=== PATIENT | male | born 1950 | race Caucasian/White ===

== ENCOUNTER → 2022-08-14 07:42 | Outpatient (BNVA) | payer MEDICARE, SELFPAY | PROVIDERS: PCP Family Medicine; Visit Provider Nurse Practitioner Family | DX: R25.1 Tremor, unspecified (principal); F45.8 Other somatoform disorders; H53.8 Other visual disturbances; M48.02 Spinal stenosis, cervical region; R29.898 Other symptoms and signs involving the musculoskeletal system | CPT/HCPCS: 99202 ==

== ENCOUNTER 2022-09-10 09:16 | Outpatient (REF) | payer MEDICARE, SELFPAY ==
--- NOTE | ~2022-09-10 | MR_ITS ---
EXAMINATION: MR BRAIN WITHOUT CONTRAST CLINICAL INFORMATION: 71-year-old with tremors in hands and arms. COMPARISON: None TECHNIQUE: Multiplanar multisequence MR imaging of the brain was done without IV contrast. FINDINGS: Brain Volume: [id number] generalized diffuse parenchymal volume loss within the limitations of qualitative assessment. Structural: No malformations. Brain and Meninges: DWI sequence demonstrates no restricted diffusion to suggest acute or subacute cerebral ischemia. There are scattered punctate and patchy zones of FLAIR/T2 signal hyperintensity in the subcortical and deeper periventricular white matter of both cerebral hemispheres, which are nonspecific findings but likely reflect chronic ischemic microangiopathy in a patient of this age. Gradient refocused imaging demonstrates no abnormal magnetic susceptibility artifact to suggest hemorrhage, hemosiderin staining or abnormal mineralization. No extra-axial fluid collections, significant space-occupying process or mass effect is identified. [place]-white matter differentiation is well maintained. Ventricles and Subarachnoid Spaces: The ventricular system and subarachnoid spaces are within normal range. There is no hydrocephalus. Orbital Structures: Bilateral lens extractions are noted. Otherwise, the visualized orbital structures are grossly unremarkable within the limitations of the study. Vascular: Signal voids are noted in the visualized major intracranial vessels. Osseous Structures, Sinuses/Mastoids, Extracranial Soft Tissues: Unremarkable. MR/MR head/brain wo con IMPRESSION: 1. 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 No acute intracranial process identified. 2. Hmbf-bp-[id number] generalized diffuse brain parenchymal volume loss without hydrocephalus.
== END 2022-09-10 09:17 | disposition home or self-care (01) ==
LOC: HO.MRI 09:16
PROVIDERS: PCP Family Medicine; Visit Provider Nurse Practitioner Family
DX: R25.1 Tremor, unspecified (principal); H53.8 Other visual disturbances; R29.898 Other symptoms and signs involving the musculoskeletal system
CPT/HCPCS: 70551

== ENCOUNTER → 2022-12-11 10:42 | Outpatient (BNVA) | payer MEDICARE, SELFPAY | PROVIDERS: PCP Family Medicine; Visit Provider Nurse Practitioner Family | DX: R25.1 Tremor, unspecified (principal); M48.02 Spinal stenosis, cervical region | CPT/HCPCS: 99212 ==

== ENCOUNTER 2023-05-21 09:54 | Outpatient (AMB) | payer MEDICARE, SELFPAY ==
[2023-05-21 10:12] VITALS: BP 120/72; PULSE 60; O2SAT 95; BMI 24.7
--- NOTE | 2023-05-21 10:12 | MHC.OFFVIS ---
Intake Vital Signs 05/21/23 10:12 Height 5 ft 10 in Weight 172 lb BMI 24.7 BP 120/72 Blood Pressure Location Lt brachial Position Sitting Pulse 60 Pulse Source Pulse Oximeter Pulse Oximetry (%) 95 Oxygen Delivery Method Room Air Intake Visit Reasons: 4m follow up tremers - Confirmed Intake Note: Pt presents as a 4 month f/u for tremors. Pt states I don't think the meds are working as well as they used to be. Human Resources Support Specialist Required: No Allergies No Known Allergies Allergy (Verified 05/21/23 10:15) Medication List - Last Reconciled 05/21/23 by OANH Rodriguez multivitamin 1 tab PO DAILY propranolol 10 mg PO BID PRN 30 days sildenafil mg PO HPI HPI Comments History of Present Illness Details 72-yr-old male presents for f/u visit. Pt's current tremor medication regimen: Propranolol 10 mg qd-bid Pt's primary concerns are: Feels the Propranolol is not as effective. Noticing more tremor when say holding his coffeee cup in the morning. He is wondering about interaction w/ Sildenafil. He would like to review the previous brain MRI. ADL's: Ind Orthostatic lightheadedness: None Tremor: as above Falls: None Memory: Intact Sleep: Denies parasomnias. Does snore. Wakes up refreshed. Exercise: Not exercising as much- states life has just gotten in the way [facility] Medical History Achilles tendon tear Cervical radiculopathy Cervical spinal stenosis Hypogonadism Neural foraminal stenosis of cervical spine Surgical History History of back surgery Family History Mother No problems noted. Father No problems noted. Social History (Updated 05/21/23 @ 10:16 by Gladys Pearce CMA) Alcohol intake: current Alcohol intake frequency: holidays/special occasions only Patient Tobacco Use Status: Never used Tobacco Review of Systems Const All systems reviewed & are unremarkable except as noted in HPI and below Physical Exam Vital Signs: Last Vital Signs Pulse 60 05/21/23 10:12 BP 120/72 05/21/23 10:12 Pulse Ox 95 05/21/23 10:12 Oxygen Delivery Method Room Air 05/21/23 10:12 BMI result Body Mass Index 24.7 Const General: cooperative and no acute distress Resp Effort & Inspection: normal respiratory effort and able to speak in complete sentences Neuro Other: Expression: Intact Voice: Strong Tremor: BUE R > L postural tremor Tone: Very mild RUE tone. Dyskinesia: None FFM: Intact Foot taps: intact Gait: Slight drop of right shoulder, otherwise, good stride, steady gait. General: patient oriented x3 and CN's II-XI intact bilaterally Cognition (Neuro): normal cognition Assessment & Plan Assessment & Plan (1) Tremor: Comment: likely ET, possibly cervicogenic, low-suspicion for dopaminergic process at this time. Code(s): R25.1 - Tremor, unspecified (2) White matter abnormality on MRI of brain: Comment: mild age-related white matter changes and mild-mod global cerebral volume loss Code(s): R90.82 - White matter disease, unspecified Plan Reviewed brain MRI report and [id number] white matter changes and mild-mod volume loss. Again no findings to explain pt's BUE tremor. Increase Propranolol to 20mg qam and 10mg qpm (hold if he plans to take sildenafil) Increase regular physical activity. Future considerations- Kaley-Trio. f/u in 6 months or sooner prn Medications: Changed From propranolol 10 mg PO BID 30 days PRN 60 tabs 6RF tremor To propranolol 20mg qam and 10mg qpm orally 2 times a day; 30 days 60 tabs 6RF tremor Coding Level of Care Code Est Pt Level 4 (77123) Diagnoses Tremor R25.1 White matter abnormality on MRI of brain R90.82
== END 2023-05-21 11:01 | disposition home or self-care (01) ==
PROVIDERS: Visit Provider Nurse Practitioner Family
DX: R25.1 Tremor, unspecified (principal); R90.82 White matter disease, unspecified
CPT/HCPCS: 99214

== ENCOUNTER → 2023-05-21 09:54 | Outpatient (BNVA) | payer MEDICARE, SELFPAY | PROVIDERS: Visit Provider Nurse Practitioner Family | DX: R25.1 Tremor, unspecified (principal); R90.82 White matter disease, unspecified | CPT/HCPCS: 99212 ==

== ENCOUNTER 2024-02-13 08:47 | Outpatient (AMB) | payer MEDICARE, SELFPAY ==
--- NOTE | 2024-02-13 08:48 | MHC.OFFVIS ---
Vital Signs 02/13/24 08:55 Height 5 ft 10 in Weight 168 lb 6 oz BMI 24.2 BP 120/70 Blood Pressure Location Lt brachial Position Sitting Pulse 53 Pulse Source Pulse Oximeter Temp 97 F Intake Visit Reasons: 6m follow up tremors-LVM Intake Note: Patient presents for 6 months f/u. Propranolol is not lasting all day. Allergies No Known Allergies Allergy (Verified 02/13/24 08:53) Medication List - Last Reconciled 02/13/24 by OANH Rodriguez multivitamin 1 tab PO DAILY propranolol 10 - 20 mg (1 - 2 x 10 mg) PO ONCE 30 days propranolol ER 60 mg PO DAILY 30 days sildenafil mg PO HPI Comments Details: 73-yr-old female presents for f/u visit. Pt denies any significant interval medical history changes. Since the last visit, we adjusted pt's Propranolol to 60mg ER qam. Pt finds this helps in the am but wears off by the afternoon, around 4pm. He is noticing more tremor in the left hand, tremor has always been more prominent on the left. Pt states it is an action tremor, when holding a cup. He may notice thumbs tremoring when he holds his hands together (states he just recently started doing this when sitting), may notice left thumb twitch when driving (using RUE to steer). Denies orthostatic lightheadedness. Denies hyposmia. Denies parasomnias. No falls. Cognition stable. Continues to exercise regularly- goes to the gym- full body strength training. [facility] Medical History Achilles tendon tear Cervical radiculopathy Cervical spinal stenosis Hypogonadism Neural foraminal stenosis of cervical spine Surgical History History of back surgery Family History Mother No problems noted. Father No problems noted. Social History (Updated 02/13/24 @ 08:55 by Bailee Rodriguez CMA) Household Members: Spouse Housing: Apartment Alcohol intake: current Alcohol intake frequency: holidays/special occasions only Patient Tobacco Use Status: Never used Tobacco Review of Systems Const All systems reviewed & are unremarkable except as noted in HPI and below Physical Exam Vital Signs: Last Vital Signs Temp 97 F 02/13/24 08:55 Pulse 53 02/13/24 08:55 BP 120/70 02/13/24 08:55 BMI result Body Mass Index 24.2 Const General: cooperative and no acute distress Resp Effort & Inspection: normal respiratory effort and able to speak in complete sentences Neuro Other: General: A&O x's 3 Expression: Intact Voice: Intact Tremor: Intermittent mild left 1st finger tremor. BUE, L > R, postural tremor. Tone: Mild LUE tone Dyskinesia: None FFM: Intact Foot taps: Slower on left- has h/o achile's injury. Gait: Stands easily, slight decreased left arm swing. Psych: Pleasant affect. Assessment & Plan Assessment & Plan (1) Tremor: Comment: likely ET, possibly cervicogenic, low-suspicion for dopaminergic process at this time. Code(s): R25.1 - Tremor, unspecified Category: Medical (2) White matter abnormality on MRI of brain: Comment: mild age-related white matter changes and mild-mod global cerebral volume loss Code(s): R90.82 - White matter disease, unspecified Category: Medical Plan Continue Propranolol ER 60mg qam, may take Propranolol IR 10-20mg q afternoon. BP normotensive Monitor for lightheadedness. Continue increased physical and social activity. Future considerations- Primidone, dopaminergic tx. Medications: New propranolol q afternoon 10 - 20 mg (1 - 2 x 10 mg) PO ONCE 60 tabs 3RF tremor 30 days Coding Level of Care Code Est Pt Level 4 (79644) Diagnoses Tremor R25.1 White matter abnormality on MRI of brain R90.82
[2024-02-13 08:55] VITALS: BP 120/70; PULSE 53; TEMP 36.1; BMI 24.2
== END 2024-02-13 09:16 | disposition home or self-care (01) ==
PROVIDERS: PCP Family Medicine; Visit Provider Nurse Practitioner Family
DX: R25.1 Tremor, unspecified (principal); R90.82 White matter disease, unspecified
CPT/HCPCS: 99214

== ENCOUNTER → 2024-02-13 08:47 | Outpatient (BNVA) | payer MEDICARE, SELFPAY | PROVIDERS: PCP Family Medicine; Visit Provider Nurse Practitioner Family | DX: R25.1 Tremor, unspecified (principal); R90.82 White matter disease, unspecified; Z79.899 Other long term (current) drug therapy | CPT/HCPCS: 99212 ==

== ENCOUNTER 2025-01-04 08:26 | Outpatient (AMB) | payer MEDICARE, SELFPAY ==
[2025-01-04 08:32] VITALS: BP 130/70; PULSE 64; O2SAT 95; BMI 24.8
--- NOTE | 2025-01-04 08:32 | A.OFFVIS_ITS ---
Vital Signs 01/04/25 08:32 Height 5 ft 10 in Weight 173 lb BMI 24.8 BP 130/70 Blood Pressure Location Rt brachial Position Sitting Pulse 64 Pulse Source Pulse Oximeter Pulse Oximetry (%) 95 Oxygen Delivery Method Room Air Intake Visit Reasons: 6 mon follow up Intake Note: Patient presents follow up tremor medication Entry Level Administrative Assistant Required: No Accompanied by: Self / Same As Patient Allergies No Known Allergies Allergy (Verified 02/13/24 08:53) Medication List - Last Reconciled 01/04/25 by OANH Rodriguez gabapentin 300 mg PO DAILY multivitamin 1 tab PO DAILY propranolol 10 - 20 mg (1 - 2 x 10 mg) PO ONCE 30 days propranolol ER 60 mg PO DAILY 30 days sildenafil mg PO HPI Comments Details: 73-yr-old female presents for f/u visit of tremor. Pt denies any significant interval medical history changes. Since last visit, patient has started on gabapentin, however he continues to have progressive tremor. He is curious about trying focused ultrasound instead of medication to manage the tremor better. The tremor is left-handed, but now also in the right hand. He continues to have tremor when holding a coffee cup. But he is also noticing tremor now at rest especially in the left thumb, and even his left hand when walking. Has had a hoarse voice x's past 1.5 years. Denies dysphagia. Denies orthostatic lightheadedness. Denies hyposmia. Denies constipation. Denies urinary changes. Sleeping longer. Denies parasomnias. Denies stiffness. No falls or gait changes. Cognition stable- but have some STM lapses. Continues to work as an advisor. Continues to exercise regularly- goes to the gym- full body strength training. [facility] Medical History Achilles tendon tear Cervical radiculopathy Cervical spinal stenosis Hypogonadism Neural foraminal stenosis of cervical spine Surgical History History of back surgery Family History Mother No problems noted. Father No problems noted. Social History Household Members: Spouse Housing: Apartment Alcohol intake: current Alcohol intake frequency: holidays/special occasions only Patient Tobacco Use Status: Never used Tobacco Physical Exam Vital Signs: Last Vital Signs Pulse 64 01/04/25 08:32 BP 130/70 01/04/25 08:32 Pulse Ox 95 01/04/25 08:32 Oxygen Delivery Method Room Air 01/04/25 08:32 BMI result Body Mass Index 24.8 Const General: cooperative and no acute distress Resp Effort & Inspection: normal respiratory effort and able to speak in complete sentences Neuro Other: General: A&O x's 3 Expression: Intact Voice: Intact Tremor: Intermittent mild left 1st finger tremor. BUE, L > R, postural tremor. Tone: Mild BUE, L > R, tone Dyskinesia: None FFM: Slightly decreased on right. Foot taps: Slower on left- has h/o achile's injury. Gait: Stands easily, slight decreased left arm swing with LUE tremor, good stride, good turn. Psych: Pleasant affect. Assessment & Plan Assessment & Plan (1) Tremor: Comment: likely ET, possibly cervicogenic, Code(s): R25.1 - Tremor, unspecified Category: Medical (2) White matter abnormality on MRI of brain: Comment: mild age-related white matter changes and mild-mod global cerebral volume loss Code(s): R90.82 - White matter disease, unspecified Category: Medical Plan Discussion Notes I discussed with the patient the progression of his tremor and the potential need to investigate further for Parkinson's Disease. I explained the differences between essential tremor and Parkinsonism, focusing on the presence of a rest tremor and changes in facial expression. We discussed the utility of repeating an MRI to rule out silent strokes and the potential for a AMISHA scan to assess dopamine transporter function, noting its limitations and how it may guide further evaluation. I informed him that a positive AMISHA scan would indicate Parkinsonian syndrome, hence supporting further clinical decision-making. We explored treatment options for tremor management focusing on the initiation of medications that involve dopamine, discussing potential side effects like nausea and lightheadedness. Alternative surgical approaches, such as focused ultrasound and deep brain stimulation, were reviewed, emphasizing reversibility and potential cognitive risks. I encouraged continued exercise and social engagement as positive interventions. The patient consented to proceed with planned diagnostics. Plan 1.Arrange MRI and AMISHA scan. MRI to rule out past stroke. DaTSCAN to assess for central dopaminergic metabolic dysfunction. Consider trial of dopamine medication, such as CD LD or amantadine, post-results. Discuss deep brain stimulation if Parkinsonism confirmed. 2. Gabapentin treatment continued for tremor. Symptoms worsened. Evaluate with imaging to assess for Parkinson's features. Additional pharmacological or procedural interventions may be needed. Patient Instructions - Continue taking gabapentin as prescribed. - Schedule the MRI and AMISHA scan as soon as possible. - Maintain regular exercise routine. - Avoid searching online for medical advice until test results are reviewed. - Report any new symptoms or changes in current symptoms promptly. - Stay active and engage socially to promote general health and quality of life. Patient was informed and verbally consented to the use of an ambient scribe for clinic note documentation during this visit. Will follow-up upon review of above and patient to follow-up in clinic in 3-4 months or sooner prn. Orders: Orders DaTscan Today R25.1 - Tremor, unspecified, R29.898 - Other symptoms and signs involving the musculoskeletal system, R90.82 - White matter disease, unspecified MR cervical spine wo/w con Today R25.1 - Tremor, unspecified, R29.898 - Other symptoms and signs involving the musculoskeletal system, R90.82 - White matter disease, unspecified Coding Level of Care Code Est Pt Level 4 (28935) Diagnoses Tremor R25.1 White matter abnormality on MRI of brain R90.82
--- OUTSIDE RECORDS SUMMARY | 2025-01-04 08:59 | XMS_ITS | Clinical Summary ---
Author Organization [facility] Address [address] [place] [address] Care Team Providers Care Central Office Repairer Supervisor Name Role Phone Unavailable Primary Care Provider Unavailabl e Medical History Medical History Date Comments Lumbago 02/18/2012 DX:Lumbago Lumbosacral spondylosis with out myelopathy DX:Lumbosacral spondylosis w ithout myelopathy Family History Medical History Relation Name Comments Autoimmune disease Neg Hx Breast cancer Neg Hx Colon cancer Neg Hx Coronary artery disease Neg Hx Diabetes Neg Hx Heart attack Neg Hx Heart failure Neg Hx Hyperlipidemia Neg Hx Hypertension Neg Hx Mental illness Neg Hx Prostate cancer Neg Hx Sleep apnea Neg Hx Thyroid disease Neg Hx Relation Name Status Comments Father Mother Social History Tobacco Use Types Packs/Day Years Used Date Smoking Tobacco: Never Smokeless Tobacco: Never Alcohol Use Standard Drinks/Week Comments Yes 0 (1 standard drink = 0.6 oz pur e alcohol) Sex and Gender Information Value Date Recorded Sex Assigned at Not on file Legal Sex Male 11:11 PM EST Gender Identity Not on file Sexual Orientation Not on file Obstetrics History Last Filed Vital Signs Vital Sign Reading Time Taken Comments Blood Pressure 132/62 02/13/2022 9:49 AM EDT Pulse 54 02/13/2022 9:49 AM EDT Temperature - - Respiratory Rate - - Oxygen Saturation - - Inhaled Oxygen Concentration - - Weight 81.6 kg (180 lb) 01/15/2022 8:51 AM EDT Height 177.8 cm (5' 10 ) 01/15/2022 8:51 AM EDT Body Mass Index 25.83 01/15/2022 8:51 AM EDT Plan of Treatment Health Maintenance Due Date Last Done Comments DTaP,Tdap,and Td Vaccines (1 - Tdap) 1968 Pneumococcal Vaccine: 50+ Ye ars (1 of 1 - PCV) 1999 Zoster Vaccines (1 of 2) 1999 Abdominal Aortic Aneurysm (A AA) Screen 09/15/2022 Cholesterol Screening (Lipid Panel) 09/15/2022 Colorectal Cancer Screening: Colonoscopy 09/15/2022 Depression Screening 09/15/2022 Falls Risk Assessment 09/15/2022 Hepatitis C Screening 09/15/2022 Social Influencers of Health Screening 09/15/2022 COVID-19 Vaccine ( - 2023-2 5 season) 2024 Influenza Vaccine (#1) 2024 RSV Immunization Patients 60 + Years Old (1 - 1-dose 75+ series) 2024 HIB Vaccines Aged Out No longer eligi ble based on patient's age to complete this topic HPV Vaccines Aged Out No longer eligi ble based on patient's age to complete this topic Hepatitis A Vaccines Aged Out No long er eligible based on patient's age to complete this topic Hepatitis B Vaccines Aged Out No long er eligible based on patient's age to complete this topic IPV Vaccines Aged Out No longer eligi ble based on patient's age to complete this topic MMR Vaccines Aged Out No longer eligi ble based on patient's age to complete this topic Meningococcal ACWY Vaccine Aged Out N o longer eligible based on patient's age to complete this topic Meningococcal B Vacine Aged Out No lo nger eligible based on patient's age to complete this topic RSV Immunization Patients Un padmini 20 months Aged Out No longer eligible b ased on patient's age to complete this topic Varicella Vaccines Aged Out No longer eligible based on patient's age to complete this topic
== END 2025-01-04 09:46 | disposition home or self-care (01) ==
LOC: HO.HSMS 08:26
PROVIDERS: PCP Family Medicine; Visit Provider Nurse Practitioner Family
DX: R25.1 Tremor, unspecified (principal); R90.82 White matter disease, unspecified
CPT/HCPCS: 99214

== ENCOUNTER → 2025-01-04 08:26 | Outpatient (BNVA) | payer MEDICARE, SELFPAY | PROVIDERS: PCP Family Medicine; Visit Provider Nurse Practitioner Family | DX: R25.1 Tremor, unspecified (principal); R90.82 White matter disease, unspecified | CPT/HCPCS: 99212 ==

== ENCOUNTER 2025-01-13 10:49 | Outpatient (REF) | payer MEDICARE, SELFPAY ==
--- NOTE | ~2025-01-13 | MR_ITS ---
EXAMINATION: MR CERVICAL SPINE WITHOUT AND WITH CONTRAST CLINICAL INFORMATION: White matter disease, unspecified. COMPARISON: None available. TECHNIQUE: MRI of the cervical spine was obtained using routine sequences with and without contrast. Intravenous contrast: (Gadolinium based (Gadavist) 8 mL. No reported immediate complications FINDINGS: The cervical spinal cord signal is normal. There is no enhancing lesion within the cervical spinal cord. No abnormal enhancement within the leptomeningeal compartment or the prevertebral compartment nor the central spinal canal. Craniocervical junction is intact. Bone marrow inhomogeneity throughout the axial skeleton. L2 level marginal osteophyte formation and disc desiccation more conspicuous at C6-7 and to a lesser extent C5-6, C7-T1, C4-5 and T1 T3 levels. There is a buckling deformity of the dorsal aspect of the thecal sac secondary to hypertrophy of the ligamentum flavum at C2-3, C3-4, C5-6 levels. C2-3: No disc herniation. No neuroforamina stenosis. C3-4: Disc osteophyte complex formation resulting in ventral deformity of thecal sac. No neuroforamina stenosis. No cord compression. C4-5: Disc osteophyte complex formation resulting in ventral deformity of the thecal sac. No cord compression. Bilateral neuroforamina stenosis on a degenerative basis. C5-6: Disc osteophyte complex formation resulting in ventral deformity of the thecal sac. No cord compression. Bilateral neuroforamina stenosis on a degenerative basis. Small right perineural cyst. C6-7: Disc osteophyte complex formation resulting in ventral deformity of the thecal sac. No cord compression. Bilateral neuroforamina stenosis on a degenerative basis. Small perineural cysts, bilaterally. C7-T1: No disc herniation. No neuroforamina stenosis. No prevertebral compartment hematoma, mass or fluid collection. Flow-void signal within the main vessels is normal. Left vertebral artery is slightly dominant. MR/MR cervical spine wo/w con IMPRESSION: No abnormal enhancing lesion and or mass, cervical spine. Multilevel cervical spondylosis C3 C7 more conspicuous at C4-5 C5-6 and to a lesser extent C4-5 resulting in central spinal canal and bilateral neuroforamina stenosis. No cord edema and or myelopathy or cord lesion. Electronically signed by: Christiano Freitas MD 01/14/2025 09:29 AM EDT RP
--- OUTSIDE RECORDS SUMMARY | 2025-01-13 12:04 | XMS_ITS | Clinical Summary ---
Author Organization [address] [place] [address] [place] [id number] Phone Care Team Providers Care Manager Customer Name Role Phone Abraham Young DO Primary Care Provider [phone] Medical History Medical History Date Comments Lumbago [...] 01/15/2022 8:51 AM EDT Plan of Treatment Upcoming Encounters Date Type Department Care Team ([facility] st Contact Info) Description 01/17/2025 8:30 AM EDT Consult Plastic & Reconstructive Surgery - [place] [address] [place] [id number] Cj Fernandez, [address] [place] [address] Health Maintenance Due Date Last Done Comments [...] Vaccine ( - 2023-2 5 season) 2024 RSV Immunization Adult Patie nts (1 - 1-dose 75+ series) 2024 Influenza Vaccine (Season Ended) 2025 HIB Vaccines Aged Out No longer eligi [...] on patient's age to complete this topic Insurance [facility] [address] [place] [address] Care Teams Manager Customer Relationship Specialty Start Date End Date Abraham Young DO [address], [place] PCP - General Family Medicine 01/10/25
[2025-01-13] MEDS: gadobutroL 10 ML VIAL IVPUSH (12:41)
== END 2025-01-13 10:50 | disposition home or self-care (01) ==
LOC: HO.MRI 10:49
PROVIDERS: PCP Family Medicine; Visit Provider Nurse Practitioner Family
DX: R90.82 White matter disease, unspecified (principal); R29.898 Other symptoms and signs involving the musculoskeletal system; R25.1 Tremor, unspecified
CPT/HCPCS: 72156; A9585

== ENCOUNTER → 2025-01-13 11:23 | Outpatient (BNV) | payer MEDICARE, SELFPAY | PROVIDERS: PCP Family Medicine; Visit Provider Radiology Diagnostic Radiology | DX: M47.812 Spondylosis without myelopathy or radiculopathy, cervical region (principal) | CPT/HCPCS: 72156 ==

== ENCOUNTER 2025-04-06 15:48 | Outpatient (AMB) | payer MEDICARE, SELFPAY ==
[2025-04-06 16:08] VITALS: BP 140/70; PULSE 62; O2SAT 97; BMI 24.2
--- NOTE | 2025-04-06 16:08 | A.OFFVIS_ITS ---
Vital Signs 04/06/25 16:08 Height 5 ft 10 in Weight 169 lb BMI 24.2 BP 140/70 H Blood Pressure Location Rt brachial Position Sitting Pulse 62 Pulse Source Pulse Oximeter Pulse Oximetry (%) 97 Oxygen Delivery Method Room Air Intake Visit Reasons: 4 mo follow up Glucose And Syrup Weigher Required: No Accompanied by: Self / Same As Patient Allergies No Known Allergies Allergy (Verified 02/13/24 08:53) Medication List - Last Reconciled 04/06/25 by OANH Rodriguez carbidopa-levodopa 25-100 mg 1 tab PO BID 30 days multivitamin 1 tab PO DAILY propranolol 10 - 20 mg (1 - 2 x 10 mg) PO ONCE 30 days propranolol ER 60 mg PO DAILY 30 days sildenafil mg PO HPI Comments Details: History of Present Illness The patient is a 74-year-old male presenting with Parkinson's Disease, primarily marked by tremor. Since the last visit, his AMISHA scan has shown diminished bilateral putamen activity, with a more pronounced decrease on the right side, coupled with asymmetric activity in the anterior caudate nuclei, consistent with diagnoses Parkinson's. and the C-spine MRI, showed multilevel cervical spondylosis, spinal canal stenosis and bilateral neuroforaminal stenosis without cord edema or myelopathy. On review of the studies, patient was advised to trial carbidopa levodopa and Discontinue propranolol. The patient reports he has started using carbidopa/levodopa twice daily, which has helps some without notable side effects such as orthostatic lightheadedness, gastrointestinal discomfort, or dyskinesia. However, he experiences a significant tremor that intensifies when holding objects, often necessitating the use of both hands for greater stability. His cognitive abilities remain largely stable, although he occasionally forgets movie titles, attributing this to aging rather than a worsening cognitive decline. Over recent months, the patient has not partaken in regular exercise, partly due to a busy personal schedule. Despite this, he maintains independence in activities of daily living and denies any mood or significant sleep disturbances. Pt's current PD medication regimen: Carbidopa/Levodopa twice a day at 8:30 and 4:30 Activities of daily living (ADL's): Independent Instrumental activities of daily living (IADL's): Independent Swallowing difficulty: Denies Cough: Denies Drooling: Denies Orthostatic lightheadedness: Denies Constipation: Denies Urinary symptoms: Denies Tremor: Present, worse when holding objects Dyskinesia: None Stiffness: Denies Musculoskeletal symptoms: Denies Gait difficulties or changes: Denies Freezing episodes of gait: Denies Falls: Denies Mood difficulties or changes: Denies Hallucinations: Denies Memory difficulties or changes: Occasionally forgets movie titles Sleep difficulties: Denies Exercise routine: Not in the last month and a half Socialization and cognitive activities: None Results - 01/19/2025, AMISHA Scan showing diminished activity in the putamen bilaterally, more prominent on the right, with asymmetric activity in the anterior caudate nuclei. - 01/13/2025,MR/MR cervical spine wo/w con IMPRESSION: No abnormal enhancing lesion and or mass, cervical spine. Multilevel cervical spondylosis C3 C7 more conspicuous at C4-5 C5-6 and to a lesser extent C4-5 resulting in central spinal canal and bilateral neuroforamina stenosis. No cord edema and or myelopathy or cord lesion. [facility], [facility] Medical History Achilles tendon tear Cervical radiculopathy Cervical spinal stenosis Hypogonadism Neural foraminal stenosis of cervical spine Surgical History History of back surgery Family History Mother No problems noted. Father No problems noted. Social History Household Members: Spouse Housing: Apartment Alcohol intake: current Alcohol intake frequency: holidays/special occasions only Patient Tobacco Use Status: Never used Tobacco Physical Exam Vital Signs: Last Vital Signs Pulse 62 04/06/25 16:08 BP 140/70 H 04/06/25 16:08 Pulse Ox 97 04/06/25 16:08 Oxygen Delivery Method Room Air 04/06/25 16:08 BMI result Body Mass Index 24.2 Const General: cooperative and no acute distress Resp Effort & Inspection: normal respiratory effort and able to speak in complete sentences Neuro Other: General: A&O x's 3 Expression: Intact Voice: Intact Tremor: Intermittent LUE tremor. BUE, L > R, postural tremor. Tone: LUE mild rigidity in wrist and elbow Dyskinesia: None FFM: Improved Foot taps: Slower on left- has h/o Achilles injury. Gait: Stands easily, slight decreased left arm swing good stride, good turn. Psych: Pleasant affect. Assessment & Plan Assessment & Plan (1) Parkinson's disease without dyskinesia: Comment: January 2025, positive DaTSCAN. Tremor predominant Code(s): G20.A1 - Parkinson's disease without dyskinesia, without mention of fluctuations Category: Medical Qualifiers: Fluctuating manifestations: without fluctuating manifestations Qualified Code(s): G20.A1 - Parkinson's disease without dyskinesia, without mention of fluctuations (2) Tremor: Comment: Rest and action tremor, asymmetry. Likely multifactorial, including cervical spinal stenosis and Parkinson's. Code(s): R25.1 - Tremor, unspecified Category: Medical Plan Discussion Notes During the consultation, I discussed with the patient the ongoing management of Parkinson's Disease, primarily through the current regimen of carbidopa/levodopa. We considered the option of increasing the dosage to three times daily if his symptoms necessitate further control. I reviewed the AMISHA scan findings with the patient and discussed the diagnosis, treatment, and natural trajectory Parkinson's disease.. In my recommendations, I emphasized the importance of incorporating regular physical activity as adjunctive therapy aids. Patient was informed and verbally consented to the use of an ambient scribe for clinic note documentation during this visit. Plan and Patient Instructions * Increase carbidopa levodopa IR 25-100 mg from 1 tab twice a day to 1 tab 3 times a day. * may take carbidopa levodopa with or without cracker * take carbidopa levodopa at least 30 minutes before a full meal or protein intake. * Information shared on Parkinson's patient education resources, such as then every victory counts ? PD patient education book. * Increase regular physical activity * Maintain optimal fluid intake, with a goal of at least 64-80 oz per day * Monitor for changes in symptoms and inform us of any new developments. * We will request baseline neuropsych evaluation- as patient has previously express interest in sulcus ultrasound of the brain stimulation therapy * Future considerations: trial of amantadine- tremor * Complete MMSE at follow-up Pt to follow-up in 3-4 months or sooner prn. Orders: Referrals Neuropsychiatry Referral G20.A1 - Parkinson's disease without dyskinesia, without mention of fluctuations, R25.1 - Tremor, unspecified Medications: Changed From carbidopa-levodopa 25-100 mg take w/ a cracker 30 minutes before breakfast and dinner, 1 tab PO BID 30 days 60 tabs 3RF To carbidopa-levodopa 25-100 mg take w/ a cracker 30 minutes before breakfast, lunch, and dinner. 1 tab PO TID 270 tabs 1RF 90 days Discontinued propranolol ER Discontinued Reason: Doctor's Order 60 mg PO DAILY 30 days 30 caps 6RF Coding Level of Care Code Est Pt Level 4 (17732) Complex EM visit Add On G2211 Diagnoses Parkinson's disease without dyskinesia or fluctuating manifestations G20.A1 Fluctuating manifestations: without fluctuating manifestations Tremor R25.1
--- OUTSIDE RECORDS SUMMARY | 2025-04-06 18:32 | XMS_ITS | Clinical Summary ---
Author Organization [address] [place] [address] Address [address] [place] [address] Phone Care Team Providers Care Energy Scheduler Name Role Phone Abraham Young DO Primary Care Provider [phone] Allergies No known active allergies Medications gabapentin (NEURONTIN) 100 mg capsule TAKE 2 CAPSULES (200MG) ORALLY 3 TIMES A DAY FOR 30 DAYS 5 Active carbidopa-levod opa (SINEMET) 25-100 mg per tablet TAKE 1 TABLET BY MOUTH TWICE A DAY TAKE WITH A CRACKER 30 MINUTES BEFORE BREAKFAST AND DINNER, 5 Active primidone (MYSOLINE) 50 mg tablet TAKE 1 TABLET BY MOUTH AT BEDTIME FOR 2 WEEKS THEN 1 TABLET TWICE DAILY 4 Active propranoloL (INDERAL) 10 mg tablet 2 tablets (20 mg total). 3 Active sildenafiL (VIAGRA) 100 mg tablet TAKE 1 TABLET BY MOUTH 1 HOUR BEFORE SEXUAL ACTIVITY 4 Active Active Problems Problem Noted Date Diagnosed Date Basal cell carcinoma (BCC) of right christian regio n 01/17/2025 Abnormal EKG 11/01/2020 Overview (03/10/2025): Last Assessment & Plan: The patient was not to have a right bundle branch block on his electrocardiogram. He does not have any prior history of heart disease or pulmonary hypertension. He does not have any history of COPD. He does not have any symptoms suggestive of sleep apnea. The patient exercises regularly and is able to tolerate his exercises well. The right bundle branch block appears to be a new finding on his ECG, although he admits that his last ECG was many years ago. At this time, I am going to recommend for the patient to undergo an echocardiogram to evaluate for any underlying structural heart disease, particularly right-sided heart disease. I will contact the patient once I have the echocardiogram results in order to determine if he needs any additional cardiac management. Right bundle branch block 11/01/2020 Overview (03/10/2025): Last Assessment & Plan: The patient was not to have a right bundle branch block on his electrocardiogram. He does not have any prior history of heart disease or pulmonary hypertension. He does not have any history of COPD. He does not have any symptoms suggestive of sleep apnea. The patient exercises regularly and is able to tolerate his exercises well. The right bundle branch block appears to be a new finding on his ECG, although he admits that his last ECG was many years ago. At this time, I am going to recommend for the patient to undergo an echocardiogram to evaluate for any underlying structural heart disease, particularly right-sided heart disease. I will contact the patient once I have the echocardiogram results in order to determine if he needs any additional cardiac management. Displacement of lumbar inter vertebral disc without myelopathy 02/18/2012 Lumbago 02/18/2012 Lumbosacral spondylosis without myelopathy 02/17 Spinal stenosis, lumbar 02/18/2012 Resolved Problems Problem Noted Date Diagnosed Date Resolved Date Basal cell carcinoma (BCC) o f left christian region 01/17/2025 01/17/2025 Encounters Date Type Department Care Team Description 03/21/2025 3:00 PM EDT Office Visit Plastic & Reconstructive Surgery [facility] [address] [place] [phone] Tammy AddisonhJOSEPH Aftercare following surgery of the skin or subcutaneous tissue (Primary Dx) 03/11/2025 1:45 PM EDT - 03/11/2025 3:[address] [facility] [place] [address] [place] [phone] Cj Fernandez, TRANSFER TISSUE ADVANCEMENT ROTATIONAL FLAP right christian * WITH FROZEN [27399 (CPT )] 03/11/2025 1:23 PM EDT - 03/11/2025 2:35 PM EDT Hospital Encounter [facility] [place] [address] [place] [phone] Cj Fernandez DO Basal cell carcinoma (BCC) of right christian region Discharge Disposition: Home or Self Care 01/25/2025 Telephone General Surgery [facility] [address] [place] [address] Cj Fernandez DO surgery letter (01/25/25 mailed surgery letter ) 01/17/2025 8:30 AM EDT Consult Plastic & Reconstructive Surgery [facility] [address] [place] [phone] Cj Fernandez DO Basal cell carcinoma (BCC) of right christian region (Primary Dx) 01/17/2025 Telephone General Surgery [facility] [address] [facility] [address] [place] [address] Cj Fernandez DO prior auth (01/17/2025 pending) from Last 3 Months Medical History Medical History Date Comments Lumbago [...] Sign Reading Time Taken Comments Blood Pressure 165/77 03/11/2025 1:40 PM EDT Pulse 61 03/11/2025 1:40 PM EDT Temperature 36.4 C (97.5 F) 03/11/2025 1:40 PM EDT Respiratory Rate - - Oxygen Saturation - - Inhaled Oxygen Concentration - - Weight 78.4 kg (172 lb 12.8 oz) 01/17/2025 8:26 AM EDT Height 180.3 cm (5' 11 ) 01/17/2025 8:26 AM EDT Body Mass Index 24.1 01/17/2025 8:26 AM EDT Plan of Treatment Health Maintenance Due Date Last Done Comments DTaP,Tdap,and Td Vaccines (1 - Tdap) 1969 Pneumococcal Vaccine: 50+ Years (1 of 2 - PCV) 1969 Zoster Vaccines (1 of 2) 1969 Cholesterol Screening (Lipid Panel) 09/15/2022 Colorectal Cancer Screening: Colonoscopy 09/15/2022 Depression Screening 09/15/2022 Falls Risk Assessment 09/15/2022 Hepatitis C Screening 09/15/2022 Medicare Annual Wellness Visit 09/15/2022 Social Influencers of Health Screening 09/15/2022 COVID-19 Vaccine (4 - 2023-2 5 season) 2024 09/03/2021, 02/22/2021, 02/01/2021 RSV Immunization Adult Patients (1 - 1-dose 75+ series) 2024 Influenza [...] age to complete this topic Meningococcal B Vaccine Aged Out No l onger eligible based on patient's age to complete this topic RSV Immunization Patients Under 20 months Aged Out No longer eligible b ased on patient's age to complete this topic Varicella Vaccines Aged Out No longer eligible based on patient's age to complete this topic Procedures Procedure Name Priority Date/Time Associated Diagnosis Comments TISSUE EXAM Routine 03/11/2025 1:52 PM EDT Basal cell carcinoma (BCC) of right christian region [place] TRF/REARNG ADJACENT TISSUE DEFECT SCALP/ARMS/LEGS 10.1 - 30.0 SQ CM 03/11/2025 1:38 PM EDT Basal cell carcinoma (BCC) of right christian region Case Notes with frozen Special Needs R/S VIA PHONE W/ALDO MONTOYA 02/18 from Last 3 Months Results * Tissue exam (03/11/2025 1:52 PM EDT) Final Diagnosis Skin, right christian, excision: Nodular and superficial basal cell carcinoma, completely excised. Peripheral and deep margins uninvolved. 03/14/2025 3:39 PM [facility] Gross Description A. Forehead, right christian BCC ink @ 12: Received fresh for frozen is a rhomboid portion of skin designated by the surgeon as ink at 12 measuring 2.5 x 2 x 0.3 cm and inked by prosector as right red left blue 12 oclock half skin green and deep black. The specimen is sectioned and marketing development representative sections are submitted for frozen section. The specimen is submitted in entirety in three cassettes, for permanent sections A1 12 oclock half - 2 sections along center, and perpendicular section to 12 oclock, three pieces A2 6 oclock half - 2 sections along center, and perpendicular section to 6oclock, three pieces 3-remaining tissue, three pieces TS 03/14/2025 3:39 PM [facility] Intraoperative Consultation A. Forehead, right christian BCC ink @ 12: Basal cell carcinoma. Margins negative. Dr. Mcpherson discussed with Dr. Fernandez 03/11/25 at 2:15pm 1:55 - 2:15pm. 03/14/2025 3:39 PM [facility] Disclaimer Unless otherwise specified, all tissue is 10% NB formalin fixed and paraffin embedded. 03/14/2025 3:39 PM [facility] Tissue Forehead structure / Unknown 03/11/2025 1:52 PM EDT 03/11/2025 2:03 PM EDT Cj Fernandez DO LAB PATHOLOGY ORDERABLES Fin al Result [facility] [place] [facility] [address] [place] [address], from Last 3 Months Insurance [employer] Care Teams Energy Scheduler Relationship Specialty Start Date End Date Abraham Young DO [address] [place], [place] PCP - General Family Medicine 01/10/25
== END 2025-04-07 09:38 | disposition home or self-care (01) ==
LOC: HO.HSMS 15:49
PROVIDERS: PCP Family Medicine; Visit Provider Nurse Practitioner Family
DX: G20.A1 Parkinson's disease without dyskinesia, without mention of fluctuations (principal); R25.1 Tremor, unspecified
CPT/HCPCS: 99214; G2211

== ENCOUNTER → 2025-04-06 15:48 | Outpatient (BNVA) | payer MEDICARE, SELFPAY | PROVIDERS: PCP Family Medicine; Visit Provider Nurse Practitioner Family | DX: G20.A1 Parkinson's disease without dyskinesia, without mention of fluctuations (principal) | CPT/HCPCS: 99212 ==

== ENCOUNTER → 2025-04-19 10:15 | Outpatient (BNV) | payer MEDICARE, SELFPAY | PROVIDERS: PCP Family Medicine; Visit Provider Radiology Diagnostic Radiology | DX: G20.B1 Parkinson's disease with dyskinesia, without mention of fluctuations (principal) | CPT/HCPCS: 70553 ==

== ENCOUNTER 2025-04-19 10:20 | Outpatient (REF) | payer MEDICARE, SELFPAY ==
--- NOTE | ~2025-04-19 | MR_ITS ---
EXAMINATION: MR BRAIN WITHOUT AND WITH CONTRAST CLINICAL INFORMATION: Parkinson's tremor, bilateral hand tremors left greater than right. White matter disease, rigidity tremor. Abnormal previous MRI. COMPARISON: None available. TECHNIQUE: Multiplanar, multisequence MRI of the brain was obtained before and after the intravenous administration of 8 mL Gadavist. Examination performed on a 1.5 Daphnie Siemens high-field unit. FINDINGS: There is no diffusion restriction. There is no intracranial hemorrhage, acute infarction, mass effect, or edema. Ventricles, sulci, and cisterns demonstrate mild to moderate prominence, in keeping with mildly age advanced involutional changes. There is a cavum vergae. No shift of midline. No abnormal hemosiderin deposition is identified. There are a few scattered punctate and minimally confluent foci of white matter T2 hyperintensity in the periventricular, subcortical, and hemispheric deep white matter. These foci are nonspecific but statistically most likely relate to mild small vessel ischemic changes. Midline structures appear normally formed. The pituitary gland appears normal. Posterior fossa structures appear normal. Cerebellar tonsils are appropriately located. Major flow voids are preserved within the skull base. There is no abnormal intra or extra-axial enhancement after contrast administration. The globes and orbital contents demonstrate no abnormalities. There are bilateral lens replacements. Paranasal sinuses are clear bilaterally. Nasal septum is left deviated with a small leftward spur. The mastoids and tympanic cavities are normally aerated. Extracranial soft tissues demonstrate no abnormalities. No suspicious bone marrow changes are evident. Atlantoaxial joint demonstrates mild to moderate degenerative changes. MR/MR head/brain wo/w con IMPRESSION: 1. No evidence of intracranial hemorrhage, acute infarction, mass effect, or edema. No abnormal contrast enhancement. 2. Mild to moderate global involutional changes, similar to the prior exam. No asymmetric pattern of atrophy. 3. Mild changes of small vessel ischemia. Electronically signed by: Brock Zuleta MD 04/19/2025 11:41 AM EDT
--- OUTSIDE RECORDS SUMMARY | 2025-04-19 11:12 | XMS_ITS | Clinical Summary ---
Author Organization [address] [place] [address] Address [address] [place] [address] Phone Care Team Providers Care Trim Carpenter Name Role Phone Abraham Young DO Primary Care Provider [phone] Allergies No known active allergies Medications gabapentin [...] Date Basal cell carcinoma (BCC) of right mu-ism regio n 01/17/2025 Abnormal EKG 11/01/2020 Overview [...] Basal cell carcinoma (BCC) o f left mu-ism region 01/17/2025 01/17/2025 Encounters Date Type Department Care Team Description 03/21/2025 3:00 PM EDT Office Visit Plastic & Reconstructive Surgery [facility] [address] [place] [phone] Tammy AddisonhJOSEPH Aftercare following surgery of the skin or subcutaneous tissue (Primary Dx) 03/11/2025 1:45 PM EDT - 03/11/2025 3:[address] [facility] OR [address] [place] [phone] Cj Fernandez, TRANSFER TISSUE ADVANCEMENT ROTATIONAL FLAP right mu-ism * WITH FROZEN [72794 (CPT )] 03/11/2025 1:23 PM EDT - 03/11/2025 2:35 PM EDT Hospital Encounter [facility] OR [address] [place] [address] Cj Fernandez DO Basal cell carcinoma (BCC) of right mu-ism region Discharge Disposition: Home or Self Care 01/25/2025 Telephone General Surgery - [place] [address] [facility] [address] [place] [address] Cj Fernandez DO surgery letter (01/25/25 mailed surgery letter ) from Last 3 Months Medical History Medical [...] - 1-dose 75+ series) 2024 Influenza Vaccine (#1) 2025 HIB Vaccines Aged Out No longer [...] EDT Basal cell carcinoma (BCC) of right mu-ism region DE TRF/REARNG ADJACENT TISSUE DEFECT SCALP/ARMS/LEGS 10.1 - 30.0 SQ CM 03/11/2025 1:38 PM EDT Basal cell carcinoma (BCC) of right mu-ism region Case Notes with frozen Special Needs R/S VIA PHONE W/ALDO MONTOYA 02/18 from Last 3 Months Results * Tissue exam (03/11/2025 1:52 PM EDT) Final Diagnosis Skin, right mu-ism, excision: Nodular and superficial basal cell carcinoma, completely excised. Peripheral and deep margins uninvolved. 03/14/2025 3:39 PM EDT [facility] Gross Description A. Forehead, right mu-ism BCC ink @ 12: Received fresh for frozen is a rhomboid portion of skin designated by the surgeon as ink at 12 measuring 2.5 x 2 x 0.3 cm and inked by prosector as right red left blue 12 oclock half skin green and deep black. The specimen is sectioned and communications representative sections are submitted for frozen section. The specimen is submitted in entirety in three cassettes, for permanent sections A1 12 oclock half - 2 sections along center, and perpendicular section to 12 oclock, three pieces A2 6 oclock half - 2 sections along center, and perpendicular section to 6oclock, three pieces 3-remaining tissue, three pieces TS 03/14/2025 3:39 PM EDT [facility] Intraoperative Consultation A. Forehead, right mu-ism BCC ink @ 12: Basal cell carcinoma. Margins negative. Dr. Mcpherson discussed with Dr. Fernandez 03/11/25 at 2:15pm 1:55 - 2:15pm. 03/14/2025 3:39 PM EDT [facility] Disclaimer Unless otherwise specified, all tissue is 10% NB formalin fixed and paraffin embedded. 03/14/2025 3:39 PM EDT [facility] Tissue Forehead structure / Unknown 03/11/2025 1:52 PM EDT 03/11/2025 2:03 PM EDT us Cj Fernandez DO LAB PATHOLOGY ORDERABLES Fin al Result [facility] [address] [place] [address], from Last 3 Months Insurance [employer] Care Teams Trim Carpenter Relationship Specialty Start Date End Date Abraham Young DO [address] [place], [place] PCP - General Family Medicine 01/10/25
== END 2025-04-19 10:21 | disposition home or self-care (01) ==
LOC: HO.MRI 10:20
PROVIDERS: PCP Family Medicine; Visit Provider Nurse Practitioner Family
DX: R90.82 White matter disease, unspecified (principal); R29.898 Other symptoms and signs involving the musculoskeletal system; R25.1 Tremor, unspecified
CPT/HCPCS: 70553; A9585

== ENCOUNTER 2025-07-11 09:21 | Outpatient (AMB) | payer MEDICARE, SELFPAY ==
[2025-07-11 09:35] VITALS: BP 130/70; PULSE 96; O2SAT 95; BMI 24.1
--- NOTE | 2025-07-11 09:35 | A.OFFVIS_ITS ---
Vital Signs 07/11/25 09:35 Height 5 ft 10 in Weight 168 lb BMI 24.1 BP 130/70 Blood Pressure Location Rt brachial Position Sitting Pulse 96 Pulse Source Pulse Oximeter Pulse Oximetry (%) 95 Oxygen Delivery Method Room Air Intake Visit Reasons: Follow up appt Can Inspector Required: No Accompanied by: Self / Same As Patient Allergies No Known Allergies Allergy (Verified 07/11/25 09:38) Medication List - Last Reconciled 07/11/25 by OANH Rodriguez carbidopa-levodopa 25-100 mg 1 tab PO TID 90 days creatine monohydrate PO multivitamin 1 tab PO DAILY HPI Comments Details: A 74-year-old male presenting with Parkinson's Disease, primarily marked by tremor. He denies any interval significant medical history changes. He has continued to have bothersome LUE tremor. He increased his CD-LD to 1 tab QID, but this seems to only work for about 1 hour. He states he has not noticed if the tremor is responsive to alcohol. Pt's current PD medication regimen: He increased his CD-LD dose to Carbidopa/Levodopa 1 tab QID- a day at 8 am, 1-2 pm, 6 pm, 9pm Activities of daily living (ADL's): Independent Instrumental activities of daily living (IADL's): Independent, but the tremor is affecting his writing. Swallowing difficulty: Denies Cough: Denies Drooling: Denies Orthostatic lightheadedness: Denies Constipation: Denies Urinary symptoms: Denies Tremor: Present, worse when holding objects Dyskinesia: None Stiffness: Denies Musculoskeletal symptoms: some left leg cramping- has a h/o left Achilles's injury. Gait difficulties or changes: Denies Freezing episodes of gait: Denies Falls: Denies Mood difficulties or changes: Sometimes short-tempered, but catches himself Hallucinations: Denies Memory difficulties or changes: Occasionally forgets movie titles Sleep difficulties: Waking up a bit earlier, sometimes can fall back asleep. Prone to snoring. Notices phlegm in his throat. Denies h/o allergies. Has never seen ENT. Denies daytime sleepiness. Exercise routine: Exercising again, doing more lower body work Socialization and cognitive activities: Cognitive Work-up: 04/19/25, MR/MR head/brain wo/w con * No evidence of intracranial hemorrhage, acute infarction, mass effect, or edema. No abnormal contrast enhancement. * Mild to moderate global involutional changes, similar to the prior exam. No asymmetric pattern of atrophy. * Mild changes of small vessel ischemia. 01/19/2025, AMISHA Scan showing diminished activity in the putamen bilaterally, more prominent on the right, with asymmetric activity in the anterior caudate nuclei. 01/13/2025,MR/MR cervical spine wo/w con * No abnormal enhancing lesion and or mass, cervical spine. * Multilevel cervical spondylosis C3 C7 more conspicuous at C4-5 C5-6 and to a lesser extent C4-5 resulting in central spinal canal and bilateral neuroforamina stenosis. * No cord edema and or myelopathy or cord lesion. [facility] Medical History Achilles tendon tear Cervical radiculopathy Cervical spinal stenosis Hypogonadism Neural foraminal stenosis of cervical spine Surgical History History of back surgery Family History Mother No problems noted. Father No problems noted. Social History Household Members: Spouse Housing: Apartment Alcohol intake: current Alcohol intake frequency: holidays/special occasions only Patient Tobacco Use Status: Never used Tobacco Physical Exam Vital Signs: Last Vital Signs Pulse 96 07/11/25 09:35 BP 130/70 07/11/25 09:35 Pulse Ox 95 07/11/25 09:35 Oxygen Delivery Method Room Air 07/11/25 09:35 BMI result Body Mass Index 24.1 Const General: cooperative and no acute distress Resp Effort & Inspection: normal respiratory effort and able to speak in complete sentences Neuro Other: General: A&O x's 3 Expression: Intact Voice: Intact Tremor: Intermittent LUE tremor. BUE, L > R, postural tremor. Gait: Stands easily, slight decreased left arm swing good stride, good turn. Psych: Pleasant affect. Assessment & Plan Assessment & Plan (1) Parkinson's disease without dyskinesia: Comment: January 2025, positive DaTSCAN. Tremor predominant Code(s): G20.A1 - Parkinson's disease without dyskinesia, without mention of fluctuations Category: Medical Qualifiers: Fluctuating manifestations: without fluctuating manifestations Qualifi ed Code(s): G20.A1 - Parkinson's disease without dyskinesia, without mention of fluctuations (2) Tremor: Comment: Rest and action tremor, asymmetry. Likely multifactorial, including cervical spinal stenosis and Parkinson's. Code(s): R25.1 - Tremor, unspecified Category: Medical Plan Reviewed interval brain MRI results: Stable very mild white matter changes consistent with chronic microvascular ischemia, and stable mild to moderate generalized, symmetric cerebral volume loss. Plan * Discontinue carbidopa levodopa IR 25-100 mg 1 tab 3 times a day order- noting that patient was actually taking 1 tab 4 times a day. * Start carbidopa levodopa ER 25-100 mg 1 tab 6 times per day. * may take carbidopa levodopa with or without cracker * take carbidopa levodopa at least 30 minutes before a full meal or protein intake. * Start carbidopa levodopa IR 25-100 mg, 0.5-1 tab twice a day as needed for breakthrough tremor * Information previously shared on Parkinson's patient education resources, such as then every victory counts ? PD patient education book. * Continue to engage in regular physical activity * Maintain optimal fluid intake, with a goal of at least 64-80 oz per day * Monitor for changes in symptoms and inform us of any new developments. * We previously requested baseline neuropsych evaluation- as patient has previously express interest in sulcus ultrasound of the brain stimulation therapy * Future considerations: trial of amantadine- tremor * Complete MMSE at follow-up Pt to follow-up in 3 months or sooner prn. Medications: New carbidopa-levodopa 25-100 mg ER 1 tab orally 6 times per day; 180 tabs 6RF 30 days Changed From carbidopa-levodopa 25-100 mg take w/ a cracker 30 minutes before breakfast, lunch, and dinner. 1 tab PO TID 90 days 270 tabs 1RF To carbidopa-levodopa 25-100 mg take w/ a cracker 0.5 - 1 tabs PO BID PRN 180 tabs 1RF tremor 90 days Coding Level of Care Code Est Pt Level 4 (33322) Diagnoses Parkinson's disease without dyskinesia or fluctuating manifestations G20.A1 Fluctuating manifestations: without fluctuating manifestations Tremor R25.1
--- OUTSIDE RECORDS SUMMARY | 2025-07-11 10:06 | XMS_ITS | Clinical Summary ---
Author Organization [facility] Address [address] [place] [id number] Phone Care Team Providers Care Electric Distribution Engineer Name Role Phone Abraham Young Primary Care Provider Allergies No known active allergies Medications TESTOSTERONE, BULK, MISCIndications: TDG (Testosterone Gel Compounded) 60 mg/ml, usuually receives 30 ml bottle for 30 day supply. Draws up in syringe 1 ml, rubs into skin upper thigh. Takes no other meds., no known drug allergies. States takes for low Testosterone levels. Uses [employer] Compounding 60 mg by Miscellaneous route daily. Apply one gram to the skin daily Indications: TDG (Testosterone Gel Compounded) 60 mg/ml, usuually receives 30 ml bottle for 30 day supply. Draws up in syringe 1 ml, rubs into skin upper thigh. Takes no other meds., no known drug allergies. States takes for low Testosterone levels. Uses [employer] Compounding Active Medication-Free TextIndications: Protein supplement Indications: Protein supplement Active propranoloL (INDERAL) 10 MG immediate release tablet 20 mg. 08/27/20 23 Active Social History Tobacco Use Types Packs/Day Years Used Date Smoking Tobacco: Former Cigarettes 1 2 1 967 - 1969 Smokeless Tobacco: Never Tobacco Cessation:Counseling Given: Not Answered Alcohol Use Standard Drinks/Week Comments Yes 1 (1 standard drink = 0.6 oz pur e alcohol) Education Answer Date Recorded Are you interested in more education? Not on jeana e 02/07/2023 Are you concerned about learning? Not on file 02/07/2023 No 02/07/2023 No 02/07/2023 Digital Access Answer Date Recorded No 03/08/2023 No 03/08/2023 Reliable internet access at home? Not on file 03/08/2023 Device with a working camera? Not on file Sex and Gender Information Value Date Recorded Sex Assigned at Not on file Legal Sex Male 11:56 AM EDT Gender Identity Not on file Sexual Orientation Not on file Last Filed Vital Signs Vital Sign Reading Time Taken Comments Blood Pressure 133/76 12/05/2023 12:46 PM EST Pulse 51 12/05/2023 12:46 PM EST Temperature - - Respiratory Rate - - Oxygen Saturation 97% 12/05/2023 12:46 PM EST Inhaled Oxygen Concentration - - Weight 78.7 kg (173 lb 6.4 oz) 10/31/2023 10:49 AM EST Height 180.3 cm (5' 11 ) 10/31/2023 10:49 AM EST Body Mass Index 24.18 10/31/2023 10:49 AM EST Plan of Treatment Health Maintenance Due Date Last Done Comments Adult Td,Tdap Booster 1950 LIPID PANEL 1950 DEPRESSION SCREENING 1961 SMOKING Hx and SMOKELESS TOBACCO SCREENING 1962 HEPATITIS C SCREENING 1967 COLOGUARD 1994 COLONOSCOPY 1994 COLORECTAL CANCER SCREENING 1994 FIT TEST 1994 FOBT 1994 SIGMOIDOSCOPY 1994 VIRTUAL COLONOSCOPY 1994 PNEUMOCOCCAL VACCINES (50+ years) (1 of 1 - PCV) 1999 ZOSTER VACCINES (1 of 2) 1999 RSV VACCINE (1 - 1-dose 75+ series) 2024 INFLUENZA VACCINE (#1) 2025 COVID-19 VACCINE ( - 2024-2 6 season) 2025 09/03/2021, 02/22/2021, 02/01/2021 HEPATITIS A VACCINES Aged Out No long er eligible based on patient's age to complete this topic HIB VACCINES Aged Out No longer eligi ble based on patient's age to complete this topic MENINGOCOCCAL VACCINES (ACWY) Aged Out No longer eligible based on patient's age to complete this topic MENINGOCOCCAL VACCINES (B) Aged Out N o longer eligible based on patient's age to complete this topic Medical Devices Not on file Insurance * Guarantor: Jose Ramon Wasserman Account Type Relation to Patient Date of Phone Billing Address Personal/Family Self 1950 [address] [place] [address] [employer] H[employer] REPLACEMENT * Guarantor: Jose Ramon Wasserman Account Type Relation to Patient Date of Phone Billing Address Personal/Family Self 1950 [address] [place] [address] [employer] H[employer] REPLACEMENT * Guarantor: Jose Ramon Wasserman Account Type Relation to Patient Date of Phone Billing Address Personal/Family Self 1950 [address] [facility] [address] [facility] [address] [place] [address] [employer] H[place] [address] [address] [address] MEDICARE HMO REPLACEMENT MEDICARE HMO REPLACEMENT [employer] REPLACEMENT * Guarantor: Jose Ramon Wasserman Account Type Relation to Patient Date of Phone Billing Address Personal/Family Self [address] [place] [address] [employer] H[employer] REPLACEMENT * Guarantor: Jose Ramon Wasserman Account Type Relation to Patient Date of Phone Billing Address Personal/Family Self 1950 [address] [facility] [address] [place] [address] [employer] H[employer] REPLACEMENT * Guarantor: Jose Ramon Wasserman Account Type Relation to Patient Date of Phone Billing Address Personal/Family Self 1950 [address] [facility] [address] [place] [address] [employer] H[employer] REPLACEMENT Care Teams Electric Distribution Engineer Relationship Specialty Start Date End Date Abraham Young DO [address] [facility] [place] [address] PCP - General Family Medicine 07/08/18 Additional Source Comments The information contained in this document represents components of the legal health record. It is not the complete legal health record.[facility]
--- OUTSIDE RECORDS SUMMARY | 2025-07-11 10:06 | XMS_ITS | Clinical Summary ---
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 01/17/2025 Abnormal EKG 11/01/2020 Overview [...] Basal cell carcinoma (BCC) o f left synagogue region 01/17/2025 01/17/2025 Medical History Medical History Date Comments Lumbago [...] Health Maintenance Due Date Last Done Comments Colorectal Cancer Screening: Colonoscopy 1950 DTaP,Tdap,and Td Vaccines (1 - Tdap) 1968 Zoster Vaccines (1 of 2) 1968 Pneumococcal Vaccine: 50+ Years (1 of 1 - PCV) 1999 Cholesterol Screening (Lipid Panel) 09/15/2022 Falls Risk Assessment 09/15/2022 Hepatitis C Screening 09/15/2022 Medicare Annual Wellness Visit 09/15/2022 Social Influencers of Health Screening 09/15/2022 Depression Screening 2024 RSV Immunization Adult Patients (1 - 1-dose 75+ series) 2024 COVID-19 Vaccine (4 - 2024-2 6 season) 2025 09/03/2021, 02/22/2021, 02/01/2021 Influenza Vaccine (#1) 2025 HIB Vaccines Aged [...] patient's age to complete this topic Insurance [employer] AD[employer]AGE Care Teams Physical Education Professor Relationship Specialty Start Date End Date Abraham Young DO [address] [place], [place] PCP - General Family Medicine 01/10/25
--- OUTSIDE RECORDS SUMMARY | 2025-07-11 10:06 | XMS_ITS | Encounter Summary ---
Author Organization [facility] Address [address] [place] [address] Phone Care Team Providers Care Home Care Consultant Name Role Phone Abraham Young DO Primary Care Provider Encounter Details Date Type Department Care Team (Late st Contact Info) Description 12/05/2023 Procedure Pass OR Admitting Dept - Virtual Department [address] [place] [id number] Social History Tobacco Use Types Packs/Day Years Used Date Smoking Tobacco: Former Cigarettes 1 2 1 967 - 6217 Smokeless Tobacco: Never Alcohol Use Standard Drinks/Week Comments Yes 1 [...] on file Sexual Orientation Not on file documented as of this encounter Plan of Treatment Not on file documented as of this encounter Visit Diagnoses Not on filedocumented in this encounter Care Teams Home Care Consultant Relationship Specialty Start Date End Date Abraham Young DO 24 No [facility] [place] [address] PCP - General Family Medicine 9/26/18 documented as of this encounter Additional Source Comments The information contained in this document represents components of the legal health record. It is not the complete legal health record.[facility]
== END 2025-07-11 10:45 | disposition home or self-care (01) ==
LOC: HO.HSMS 09:21
PROVIDERS: PCP Family Medicine; Visit Provider Nurse Practitioner Family
DX: G20.A1 Parkinson's disease without dyskinesia, without mention of fluctuations (principal); R25.1 Tremor, unspecified
CPT/HCPCS: 99214

== ENCOUNTER → 2025-07-11 09:21 | Outpatient (BNVA) | payer MEDICARE, SELFPAY | PROVIDERS: PCP Family Medicine; Visit Provider Nurse Practitioner Family | DX: G20.A1 Parkinson's disease without dyskinesia, without mention of fluctuations (principal) | CPT/HCPCS: 99212 ==

== ENCOUNTER 2025-09-13 10:21 | Outpatient (AMB) | payer MEDICARE, SELFPAY ==
--- NOTE | 2025-09-13 10:15 | A.OFFVIS_ITS ---
Intake Visit Reasons: [facility] Receptionist Required: No Accompanied by: Self / Same As Patient Allergies No Known Allergies Allergy (Verified 09/13/25 10:15) Medication List - Last Reconciled 09/13/25 by OANH Rodriguez carbidopa-levodopa 25-100 mg 0.5 - 1 tabs PO BID PRN 90 days carbidopa-levodopa 25-100 mg ER 1 tab orally 6 times per day; 30 days creatine monohydrate PO multivitamin 1 tab PO DAILY HPI Comments Details: A 74-year-old male presenting with Parkinson's Disease, primarily marked by tremor. He denies any interval significant medical history changes. He reports that he continues to experience bothersome tremor despite increasing the carbidopa levodopa with the extended-release version. Today, he states he does not notice any specific benefit from the carbidopa levodopa. He is open to trying a new medication option. He continues to need to use 2 hands to hold a cup. Otherwise, he continues to be independent with his ADLs, IADLs, and continues to work without difficulties. He has an upcoming trip to visit his 's family in [place]. He has not had routine labs done in at least a year and a half. 07/11/2025, HPI: He has continued to have bothersome LUE tremor. He increased his CD-LD to 1 tab QID, but this seems to only work for about 1 hour. He states he has not noticed if the tremor is responsive to alcohol. Pt's current PD medication regimen: He increased his CD-LD dose to Carbidopa/Levodopa 1 tab QID- a day at 8 am, 1-2 pm, 6 pm, 9pm Activities of daily living (ADL's): Independent Instrumental activities of daily living (IADL's): Independent, but the tremor is affecting his writing. Swallowing difficulty: Denies Cough: Denies Drooling: Denies Orthostatic lightheadedness: Denies Constipation: Denies Urinary symptoms: Denies Tremor: Present, worse when holding objects Dyskinesia: None Stiffness: Denies Musculoskeletal symptoms: some left leg cramping- has a h/o left Achilles's injury. Gait difficulties or changes: Denies Freezing episodes of gait: Denies Falls: Denies Mood difficulties or changes: Sometimes short-tempered, but catches himself Hallucinations: Denies Memory difficulties or changes: Occasionally forgets movie titles Sleep difficulties: Waking up a bit earlier, sometimes can fall back asleep. Prone to snoring. Notices phlegm in his throat. Denies h/o allergies. Has never seen ENT. Denies daytime sleepiness. Exercise routine: Exercising again, doing more lower body work Socialization and cognitive activities: Continues to work Work-up: 04/19/25, MR/MR head/brain wo/w con * No evidence of intracranial hemorrhage, acute infarction, mass effect, or edema. No abnormal contrast enhancement. * Mild to moderate global involutional changes, similar to the prior exam. No asymmetric pattern of atrophy. * Mild changes of small vessel ischemia. 01/19/2025, AMISHA Scan showing diminished activity in the putamen bilaterally, more prominent on the right, with asymmetric activity in the anterior caudate nuclei. 01/13/2025,MR/MR cervical spine wo/w con * No abnormal enhancing lesion and or mass, cervical spine. * Multilevel cervical spondylosis C3 C7 more conspicuous at C4-5 C5-6 and to a lesser extent C4-5 resulting in central spinal canal and bilateral neuroforamina stenosis. * No cord edema and or myelopathy or cord lesion. [facility] Medical History Achilles tendon tear Cervical radiculopathy Cervical spinal stenosis Hypogonadism Neural foraminal stenosis of cervical spine Surgical History History of back surgery Family History Mother No problems noted. Father No problems noted. Social History Household Members: Spouse Housing: Apartment Alcohol intake: current Alcohol intake frequency: holidays/special occasions only Patient Tobacco Use Status: Never used Tobacco Physical Exam Const General: cooperative and no acute distress Resp Effort & Inspection: normal respiratory effort and able to speak in complete sentences Neuro Other: General: A&O x's 3 Expression: Intact Voice: Intact Tremor: BUE tremor Psych: Pleasant affect. Telehealth Telehealth Telehealth Platform: [employer] Location of provider rendering services: practice address Location of patient: address on file Patient Identification confirmed using: Name, : Yes Telehealth method: video Patient verbally consented to treatment: Yes Patient verbally consented to billing insurance company: Yes Patient informed of any privacy concerns related to visit: Yes Minutes spent on Phone/Video with Pt.: 24 Assessment & Plan Assessment & Plan (1) Parkinson's disease without dyskinesia: Comment: January 2025, positive DaTSCAN. Tremor predominant Code(s): G20.A1 - Parkinson's disease without dyskinesia, without mention of fluctuations Category: Medical Qualifiers: Fluctuating manifestations: without fluctuating manifestations Qualified Code(s): G20.A1 - Parkinson's disease without dyskinesia, without mention of fluctuations (2) Tremor: Comment: Rest and action tremor, asymmetry. Likely multifactorial, including cervical spinal stenosis and Parkinson's. Code(s): R25.1 - Tremor, unspecified Category: Medical Plan Brain MRI results: Stable very mild white matter changes consistent with chronic microvascular ischemia, and stable mild to moderate generalized, symmetric cerebral volume loss. Plan * Slowly wean off of carbidopa levodopa ER 25-100 mg 1 tab 6 times per day. * may take carbidopa levodopa with or without cracker * take carbidopa levodopa at least 30 minutes before a full meal or protein intake. * Start amantadine 100 mg tab: * Take 1/2 tab twice a day with food- last dose before 14:00 * Continue carbidopa levodopa IR 25-100 mg, 0.5-1 tab twice a day as needed for breakthrough tremor * For upcoming travel to [place]- patient we will bring carbidopa levodopa ER, carbidopa levodopa IR, and amantadine with him-in case he develops any worsening symptoms or intolerance to the new medication regimen * Check baseline CBC and CMP * Information previously shared on Parkinson's patient education resources, such as then every victory counts ? PD patient education book. * Continue to engage in regular physical activity * Maintain optimal fluid intake, with a goal of at least 64-80 oz per day * Monitor for changes in symptoms and inform us of any new developments. * We previously requested baseline neuropsych evaluation- as patient has previously express interest in sulcus ultrasound of the brain stimulation therapy * Future considerations: trial of amantadine- tremor * Complete MMSE at follow-up Pt to follow-up in 3 months or sooner prn. Orders: Orders Comprehensive Met. Panel Today G20.A1 - Parkinson's disease without dyskinesia, without mention of fluctuations, R03.0 - Elevated blood-pressure reading, without diagnosis of hypertension, R25.1 - Tremor, unspecified Complete Blood Count Auto Diff Today G20.A1 - Parkinson's disease without dyskinesia, without mention of fluctuations, R03.0 - Elevated blood-pressure reading, without diagnosis of hypertension, R25.1 - Tremor, unspecified Medications: New amantadine HCl 100 mg PO BID 180 tabs 1RF 90 days G20.A1 - Parkinson's disease without dyskinesia, without mention of fluctuations, R25.1 - Tremor, unspecified Coding Level of Care Code Tele Est Pt Level 4 (75817) Diagnoses Parkinson's disease without dyskinesia or fluctuating manifestations G20.A1 Fluctuating manifestations: without fluctuating manifestations Tremor R25.1
--- OUTSIDE RECORDS SUMMARY | 2025-09-13 11:46 | XMS_ITS | Clinical Summary ---
Author Organization [facility] Address [address] [place] [phone] Phone Care Team Providers Care Airfreight Loading Supervisor Name Role Phone Abraham Young Primary Care [...] Phone Billing Address Personal/Family Self 1950 [address] [facility] [address] [place] [address] [employer] H[employer] REPLACEMENT * Guarantor: Jose Ramon Wasserman Account Type Relation to Patient Date of Phone Billing Address Personal/Family Self 1950 [address] [facility] [address] [place] [address] [employer] H[employer] REPLACEMENT * Guarantor: Jose Ramon Wasserman Account Type Relation to Patient Date of Phone Billing Address Personal/Family Self 1950 [address] [facility] [address] [place] [address] [employer] [place] [address] [place] [address] MEDICARE HMO REPLACEMENT MEDICARE HMO REPLACEMENT [employer] REPLACEMENT * Guarantor: Jose Ramon Wasserman Account Type Relation to Patient Date of Phone Billing Address Personal/Family Self [address] [place] [address] [employer] H[employer] REPLACEMENT * Guarantor: Jose Ramon Wasserman Account Type Relation to Patient Date of Phone Billing Address Personal/Family Self 1950 [address] [facility] [address] [place] [address] [employer] H[employer] REPLACEMENT * Guarantor: Jose Ramon Wasserman Account Type Relation to Patient Date of Phone Billing Address Personal/Family Self 1950 [address] [facility] [address] [place] [address] [employer] H[employer] REPLACEMENT Care Teams Airfreight Loading Supervisor Relationship Specialty Start Date End Date Abraham Young DO 24 [facility] [place] [address] PCP - General Family Medicine 07/08/18 Additional Source Comments The information contained in this document represents components of the legal health record. It is not the complete legal health record.[facility]
--- OUTSIDE RECORDS SUMMARY | 2025-09-13 11:46 | XMS_ITS | Encounter Summary ---
Author Organization [facility] Address [address] [place] [phone] Phone Care Team Providers Care Cash Posting Representative Name Role Phone Abraham Young DO Primary Care Provider Encounter Details Date Type Department Care Team (Late st Contact Info) Description 12/05/2023 Procedure Pass OR Admitting Dept - Virtual Department [address] [place] [id number] Social History Tobacco Use Types Packs/Day Years Used Date Smoking Tobacco: Former Cigarettes 1 2 967 - 1968 Smokeless Tobacco: Never Alcohol Use Standard Drinks/Week [...] on filedocumented in this encounter Care Teams Cash Posting Representative Relationship Specialty Start Date End Date Abraham Young DO [address] [facility] [place] [address] PCP - General Family Medicine 9/26/18 documented as of this encounter Additional Source Comments The information contained in this document represents components of the legal health record. It is not the complete legal health record.[facility]
--- OUTSIDE RECORDS SUMMARY | 2025-09-13 11:46 | XMS_ITS | Clinical Summary ---
Author Organization [address] [place] [address] Address [address] [place] [address] Phone Care Team Providers Care Nutritional Services Host Name Role Phone Abraham Young DO Primary Care Provider Allergies No known active allergies Medications gabapentin [...] Date Basal cell carcinoma (BCC) of right latter day regio n 01/17/2025 Abnormal EKG 11/01/2020 Overview [...] Basal cell carcinoma (BCC) o f left latter day region 01/17/2025 01/17/2025 Medical History Medical History [...] [employer] [place] [employer] Care Teams Nutritional Services Host Relationship Specialty Start Date End Date Abraham Young DO [address] [place], [place] PCP - General Family Medicine 01/10/25
== END 2025-09-13 15:06 | disposition home or self-care (01) ==
LOC: HO.HSMS 10:21
PROVIDERS: PCP Family Medicine; Visit Provider Nurse Practitioner Family
DX: G20.A1 Parkinson's disease without dyskinesia, without mention of fluctuations (principal); R25.1 Tremor, unspecified
CPT/HCPCS: 99214